=== PATIENT | female | born 1960 | race Caucasian/White ===

== ENCOUNTER 2017-11-29 08:56 | Outpatient (CLI) | payer BC ==
[2017-11-29] MEDS ORDERED: iohexol 300mg/ml 100ml inj. ONE (09:09)
== END 2017-11-29 23:59 | disposition home or self-care (01) ==
LOC: 64 CT 08:56
PROVIDERS: ATTEND Surgery
DX: K57.30 Diverticulosis of large intestine without perforation or abscess without bleeding (principal); N75.0 Cyst of Bartholin's gland; K46.9 Unspecified abdominal hernia without obstruction or gangrene; F17.200 Nicotine dependence, unspecified, uncomplicated; Z90.49 Acquired absence of other specified parts of digestive tract; Z90.710 Acquired absence of both cervix and uterus
CPT/HCPCS: 74177; J7030; Q9967